=== PATIENT | male | born 1980 | race Caucasian/White ===

== ENCOUNTER 2019-07-25 02:12 | Outpatient (CLI) | payer BC, SELFPAY ==
[2019-07-25 10:58] LABS: HCT 47.7 % (40.0-50.0); HGB 15.4 g/dL (13.5-17.5); Mean Corp. HGB Concentration 32.3 g/dL (32.0-36.0); Mean Corpuscular Hemoglobin 25.8 pg (27.0-33.0); Mean Corpuscular Volume 79.8 fL (80-95); Mean Platelet Volume 9.8 fL (8.0-11.0); Platelet Count 350 x1000/uL (130-400); RBC 5.98 m/cumm (4.50-6.00); RBC Distribution Width 14.4 % (11.8-14.1); White Blood Cell Count 9.82 k/cumm (4.4-10.8)
[2019-07-25 11:17] LABS: ALT 43 U/L (16-63); AST 14 U/L (15-37); Alkaline Phosphatase 90 U/L (46-116); Anion Gap 9.6 mmol/L (3-11); BUN 20 mg/dL (7-18); Bilirubin, Total 0.4 mg/dL (0.2-1.0); CO2 26.4 mmol/L (21.0-32.0); CREATININE 0.97 mg/dL (0.70-1.30); Calcium 9.3 mg/dL (8.5-10.1); Calculated LDL 148 mg/dL; Chloride 103 mmol/L (98-107); Cholesterol 204 mg/dL (50-200); Glucose 106 mg/dL (70-100); HDL Cholesterol 44 mg/dL (40-60); Potassium 4.6 mmol/L (3.5-5.1); Sodium 139 mmol/L (136-145); Triglyceride 61 mg/dL (30-150)
== END 2019-07-25 02:32 ==
PROVIDERS: PCP Emergency Medicine; Visit Provider Family Medicine
DX: R53.83 Other fatigue (principal); G47.33 Obstructive sleep apnea (adult) (pediatric)
CPT/HCPCS: 36415; 80053; 80061; 85027

== ENCOUNTER 2021-10-01 20:37 | Outpatient (REF) | payer BC, SELFPAY ==
[2021-10-03 02:18] LABS: COVID-19 RT-PCR UVMMC Result Negative (Negative)
== END 2021-10-01 20:38 | disposition home or self-care (01) ==
LOC: LBN 20:37
PROVIDERS: PCP Emergency Medicine; Visit Provider Nurse Practitioner Family
DX: Z20.822 Contact with and (suspected) exposure to COVID-19 (principal)
CPT/HCPCS: U0003

== ENCOUNTER 2021-11-01 18:31 | Outpatient (REF) | payer BC, SELFPAY ==
[2021-11-03 01:13] LABS: COVID-19 RT-PCR UVMMC Result Negative (Negative)
== END 2021-11-01 18:32 | disposition home or self-care (01) ==
LOC: LBN 18:31
PROVIDERS: PCP Family Medicine; Visit Provider Nurse Practitioner Family
DX: Z20.822 Contact with and (suspected) exposure to COVID-19 (principal)
CPT/HCPCS: U0003

== ENCOUNTER 2021-12-12 03:39 | Outpatient (CLI) | payer BC, SELFPAY ==
[2021-12-12 10:23] LABS: HCT 47.1 % (40.0-50.0); MCH 25.5 pg (27.0-33.0); MCHC 31.8 % (32.0-36.0); MCV 80.1 fL (80-95); MPV 9.3 fL (8.0-11.0); Platelet Count 285 10^3/uL (130-400); RBC 5.88 10^6/uL (4.36-5.78); RDW 13.4 % (11.8-14.1); RDW-SD 39.1 fL; WBC 8.02 10^3/uL (4.4-10.8)
[2021-12-12 10:33] LABS: Hemoglobin A1C 5.9 % (<5.7)
[2021-12-12 11:48] LABS: ALT 55 U/L (16-63); AST 19 U/L (15-37); Alkaline Phosphatase 68 U/L (46-116); Anion Gap 10.5 mmol/L (3-11); BUN 11 mg/dL (7-18); Bilirubin, Total 0.7 mg/dL (0.2-1.0); CO2 25.5 mmol/L (21.0-32.0); CREATININE 0.9 mg/dL (0.70-1.30); Calcium 9.1 mg/dL (8.5-10.1); Calculated LDL 128 mg/dL (<100); Chloride 102 mmol/L (98-107); Cholesterol 201 mg/dL (<200); Glucose 110 mg/dL (74-106); HDL Cholesterol 37 mg/dL (40-60); Potassium 4.3 mmol/L (3.5-5.1); Sodium 138 mmol/L (136-145); TSH (W/Ref FT4) 3.21 uIU/mL (0.36-3.74); Total Protein 7.7 g/dL (6.4-8.2); Triglyceride 183 mg/dL (<150); Vitamin B12 1163 pg/mL (193-986)
== END 2021-12-12 03:40 | disposition home or self-care (01) ==
LOC: LBO 03:39
PROVIDERS: PCP Family Medicine; Visit Provider Family Medicine
DX: R20.0 Anesthesia of skin (principal); R73.9 Hyperglycemia, unspecified; Z00.00 Encounter for general adult medical examination without abnormal findings; Z13.6 Encounter for screening for cardiovascular disorders; I10 Essential (primary) hypertension
CPT/HCPCS: 36415; 80053; 80061; 85027; 82607; 83036; 84443

== ENCOUNTER 2022-09-09 10:08 | Outpatient (CLI) | payer BC, SELFPAY ==
--- NOTE | 2022-09-09 10:00 | RT.EKG_ITS ---
APPROVED REPORT Exam: Resting ECG Reason for Exam: palpatations Patient Location: O HR:79 bpm ECG Measurements Heart Rate 79 AXIS CA 149 P 27 QRSd 100 QRS 13 QT 366 T 45 QTc 420 Conclusion Sinus rhythm...normal P axis, V-rate 50- 99 ST elev, probable normal early repol pattern...ST elevation, age<55 Normal Electrocardiogram
--- NOTE | 2022-09-09 10:45 | DI.RAD_ITS ---
Exam(s) XR CHEST 2V PA LATERAL EXAM: XR CHEST 2V PA LATERAL CLINICAL HISTORY: 3 weeks of pain, palpitations, R00.2 TECHNIQUE: 2D digital imaging was performed of the chest. Two images were obtained. PA and lateral views were obtained. COMPARISON: No exams were available for comparison FINDINGS: MEDIASTINUM: Normal. HEART: Normal. PULMONARY VASCULATURE: Normal. LUNGS: Clear. PLEURAL SPACE: No pleural effusion or pneumothorax. BONE:Within normal limits for the patient's age. OTHER FINDINGS:Normal. IMPRESSION: No acute pulmonary findings. DATA REPOSITORY: RADIATION DOSE DELIVERED:
--- NOTE | 2022-09-09 10:45 | DI.RAD_ITS ---
Exam(s) XR SHOULDER LT COMPLETE 2+V EXAM: XR SHOULDER LT COMPLETE 2+V CLINICAL HISTORY: 3 weeks of pain, lt shoulder, M25.512. TECHNIQUE: 2D digital imaging was performed of the left shoulder. Six images were obtained. AP, Gr ashey, Y-view and axillary views were obtained. COMPARISON: No exams were available for comparison FINDINGS: BONES: No acute fracture is present. No bony destructive lesion is seen. JOINTS: No dislocation present. Mild degenerative changes are seen at the acromioclavicular joint. T he glenohumeral joint is well maintained. SOFT TISSUE: There is a nonspecific 8 mm density adjacent to the proximal diaphysis of the left humer us. The underlying bone is unremarkable. IMPRESSION: No acute abnormality. If there is concern for internal derangement, an MRI should be considered for further evaluation. DATA REPOSITORY: RADIATION DOSE DELIVERED:
== END 2022-09-09 10:09 | disposition home or self-care (01) ==
LOC: DI.CM 10:31
PROVIDERS: PCP Nurse Practitioner Family; Visit Provider Nurse Practitioner Family
DX: R00.2 Palpitations (principal); M25.512 Pain in left shoulder
CPT/HCPCS: 93010; 71046; 73030

== ENCOUNTER 2024-05-16 11:06 | Day surgery (SDC) | payer BC, SELFPAY ==
--- NOTE | 2024-05-15 20:21 | W.PM.DSUDISC ---
Date of service: 05/16/24 Time of Service: 13:12 Discharge Plan Disposition Patient Disposition: Home Condition: Good Discharge Details Reason For Visit: screening colonoscopy Attending Provider: Uziel Stallings Primary Care Provider: Contreras Hardy Home Meds and New Rx's Prescriptions: Continued multivitamin Tablet 1 tab PO DAILY loratadine [Claritin] 10 mg tablet 10 mg PO DAILY Qty: 90 3RF Discontinued bisacodyl [Dulcolax (bisacodyl)] 5 mg tablet,delayed release (DR/EC) 5 mg PO ONCE Qty: 4 0RF Rx Instructions: Take per colonoscopy instructions provided by ordering providers office polyethylene glycol 3350 17 gram/dose powder 17 g PO ONCE Qty: 238 0RF Rx Instructions: Take per colonoscopy instructions provided by ordering providers office Discharge Instructions Instructions: Diverticulosis Additional Instructions: Renaldo, we are able to complete your colonoscopy today without any difficulty. Your prep was excellent negative everything just fine. You do have a benign fibroepithelial polyp in the bottom part of your rectum. These are not true polyps, rather more like skin tags, or perhaps old internal hemorrhoids. They pose no significant risk to your health or wellbeing. He also have some diverticulosis. Diverticula are little weak spots in the wall of the colon. They typically accumulate as we get older. They can get infected or inflamed. When that happens, we caught diverticulitis, and it is typically experienced as sharp pains usually on the left lower part of the abdomen. Patients are usually quite ill during these times, with fevers, and general malaise. Often times it is treated with antibiotics. Hopefully, years will never bother you. I have attached a little bit of information here about typical approaches to diverticular management. Otherwise, your colonoscopy is negative. There were no polyps or anything concerning. Therefore, you will need another colonoscopy in 10 years. 1. If tolerated, consume a soft, low fiber diet for 1-2 days. 2[address] Do not drive, drink alcohol, operate machinery, make critical decisions, or do activities that require coordination or balance for 24 hours. 3. Because air was put into your colon during the procedure, expelling air from your rectum (passing gas or farting) is normal. 4. You may not have a bowel movement for 1-3 days because of the colonoscopy prep. This is normal. 5. Go directly to the emergency room if you notice any of the following: Develop chills (warm to touch), or if you have a thermometer and your temperature is above 101 Difficulty breathing or difficultly swallowing Persistent vomiting Severe abdominal pain, other than gas cramps Severe chest pain Black, tarry stools Any bleeding ? exceeding one tablespoon 6. Call your physician if the site where your intravenous was started becomes red, swollen, painful, and warm to touch. 7. Your physician has reviewed your pre-procedure medications. Please continue to take those medications as previously ordered. You will be given specific information/education regarding any changes to your medications before leaving. Activity:: Activity as Tolerated Diet:: As Tolerated Discharge Orders Discharge Orders: Discharge Order (Routine); Ordered 05/15/24 Ordered By: Uziel Stallings DS: Diagnosis Discharge Diagnosis (1) Encounter for screening colonoscopy: Status: Acute Asessment and Plan: Normal screening colonoscopy; recommend 10-year follow-up
--- NOTE | 2024-05-15 20:24 | W.COLOREPORT ---
Date of service: 05/16/24 Time of Service: 13:14 Colonoscopy Report Date of procedure: 05/16/24 Pre-op diagnosis general: screening colonsocopy Post-op diagnosis procedure note: other (Benign fibroepithelial polyp, diverticulosis) Procedure: colonoscopy Surgeon: Uziel Stallings Anesthesia Type: General:No Airway Estimated blood loss (mL): 0 Pathology: none sent Complications: None Disposition: same day Indications: Renaldo is a 43 year old man who needs a screening colonoscopy Prep: Miralax/Dulcolax Procedure Start Time: 12:56 Procedure End Time: 13:06 Retraction Time: 6 Findings: Benign fibroepithelial polyp, sigmoid diverticulosis Procedure Description: After the induction of anesthesia, and with the patient in left lateral decubitus position, I began by performing an external anorectal exam.? Perineum and skin were normal, as was the anal verge.? There was no evidence of external hemorrhoids.? Next, I performed a digital rectal exam.? There is a small polyp.? Next, I advanced a colonoscope into the rectal vault.? I performed retroflexion.? The previously mentioned polyp appeared to be a benign fibroepithelial polyp. Narrowband imaging was used to assist with analysis here.? Using insufflation, I then advanced the colonoscope beyond the rectal folds and into the sigmoid colon before advancing towards the cecum.? The scope was noted to be in the cecum by identification of the ileocecal valve and appendiceal orifice.? I then began withdrawing the colonoscope using repeated irrigation as necessary for full evaluation of the colonic mucosa. ?There is some sigmoid diverticulosis. Once the scope was withdrawn to the level of the rectum, great care was taken to examine portions of the rectal folds.? Finally, the scope was withdrawn and the patient was brought to the same-day surgery recovery unit as the anesthetic wore off. ?The findings and instructions were shared with the patient prior to discharge. [place] Bowel Prep [place] Bowel Prep Right Colon: 3 Left Colon: 3 Transverse Colon: 3 Total Score: 9
[2024-05-16 11:38] VITALS: BP 112/81; PULSE 60; RESP 16; TEMP 36.7; O2SAT 97
[2024-05-16] MEDS: Lactated Ringers 1,000 ML 80 ML IV (12:00)
--- NOTE | 2024-05-16 12:39 | W.ANESPRE ---
General Info Date of Service Date Performed: 05/16/24 Height: 5 ft 6 in Weight: 105.3 kg Body Mass Index (BMI): 37.4 Surgical Procedure: Operation Date: 05/16/24 12:50 Proposed Procedure Side Surgeon p Colonoscopy Uziel Stallings MD Actual Procedure Side Surgeon p Colonoscopy Not Applicable Uziel Satllings MD Meds Allergies and Home Medications Allergies Allergy/AdvReac Type Severity Reaction Status Date / Time No Known Allergies Allergy Verified 05/16/24 11:40 Home Medication ?Medication ?Instructions ?Recorded loratadine 10 mg tablet (Claritin) 10 mg PO DAILY #90 tabs 01/01/24 multivitamin 1 tab PO DAILY 01/01/24 Current Visit Medications: Current Medications Generic Name Dose Route Start Last Admin Trade Name Freq PRN Reason Stop Dose Admin Ringer's Solution 1,000 mls @ 80 mls/hr 05/16/24 06:00 IV 06/12/24 23:59 INFUSION PAUL IV Miscellaneous Supplies 1 each 05/16/24 06:00 Iv Access IV 06/12/24 23:59 DIRECTED PAUL Ondansetron HCl 4 mg 05/15/24 20:25 Ondansetron 4 Mg/2 Ml Vial IVP 06/14/24 20:24 Q4H PRN PRN Nausea / Vomiting Sodium Chloride 0 ml 05/16/24 06:00 Normal Saline Flush 10 Ml Syr IV 06/12/24 23:59 PRN PRN Sodium Chloride 0 ml 05/16/24 06:00 Normal Saline 10 Ml Vial IJ 06/12/24 23:59 DIRECTED PRN Sterile Water 0 ml 05/16/24 06:00 Water,Injection,Sterile 10 Ml Vial IJ 06/12/24 23:59 DIRECTED PRN PFSH Active Problems Active Problems: Problem Status Onset Code Encounter for screening colonoscopy Acute Z12.11 Environmental allergies Acute Z91.09 Mixed hyperlipidemia Acute E78.2 Left shoulder pain Acute M25.512 Hyperglycemia Acute R73.9 Low back pain without sciatica Acute 06/15/15 M54.5 Overweight Acute 06/15/15 E66.3 Sleep apnea Acute 06/15/15 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 Acute 08/28/15 H91.90 Tobacco Smoking/Tobacco Use Status: Never Passive smoking exposure: Yes Second hand exposure: Yes Alcohol Alcohol Intake: current Alcohol intake frequency: a few times a week Alcohol type: beer, wine and hard liquor Substance Use Substance use: Rarely Substance use type: marijuana Vital Signs and Lab Results Vital Signs Most Recent Vital Signs in EMR: Most Recent Vital Signs Temp Pulse Resp BP Pulse Ox 36.7 C 60 16 112/81 97 05/16/24 11:38 05/16/24 11:38 05/16/24 11:38 05/16/24 11:38 05/16/24 11:38 Lab Results Blood Type / Crossmatch: No Data to Display Complete Blood Count: No Data to Display Complete Metabolic Panel: No Data to Display Liver Function Panel: No Data to Display Coagulation Panel: No Data to Display Cardiac Panel: No Data to Display Arterial Blood Gas: No Data to Display Venous Blood Gas: No Data to Display Pancreas Panel: No Data to Display Thyroid Panel: No Data to Display Infectious Disease: No Data to Display Blood Cultures: No Data to Display Toxicology Panel: No Data to Display Anesthesia Assessment and Plan Anesthesia History Personal History: No History of General Anesthesia Family History: No Family History of Anesthesia Complications Exercise Tolerance Exercise Tolerance: Metabolic Equivalents>4 Pertinent Negatives Pertinent Negatives: No Symptoms of GERD Cardiac & Pulmonary Exam Cardiac Exam: Normal S1/S2 Heart Sounds Pulmonary Exam: Clear Bilateral Breath Sounds Implantable Cardiac Device Does patient have a Pacemaker or an ICD?: No Airway Exam Known Difficult Airway: No Mallampati Class: 2 Mouth Opening: Normal (> 3cm) Thyromental Distance: Greater than 3 cm Neck Range of Motion: Full ROM Neck Circumference: Normal Teeth Condition: Normal Dentition ASA Classification ASA Score: ASA 2 Emergency Case?: No NPO Status NPO Status: NPO Clears >2 hours, Solids >8 hours Anesthesia Plan Resuscitation Status: Full Code Anesthesia Technique: General Anesthesia Airway Planned: Natural Airway Monitors Used: Standard Monitors
[2024-05-16 12:41] VITALS: BMI 37.4
[2024-05-16 13:12] VITALS: BP 118/86; PULSE 65; RESP 18; TEMP 36.6; O2SAT 99
--- NOTE | 2024-05-16 13:20 | W.ANESPOSTOP ---
Postoperative Evaluation Date, Time and Location Date Performed: 05/16/24 Time Performed: 13:20 Patient Location: Day Surgery Unit Vital Signs Most Recent Imported Vital Signs: Most Recent Vital Signs Temp Pulse Resp BP Pulse Ox 36.7 C 60 16 112/81 97 05/16/24 11:38 05/16/24 11:38 05/16/24 11:38 05/16/24 11:38 05/16/24 11:38 Pain Score Most Recent Pain Score: Most Recent Pain Score Pain Level 0 05/16/24 11:38 Assessment Mental Status: Awake (Alert & Oriented to Patient Baseline) Airway and Respiratory Function: Patent airway with normal (patient baseline) respiratory exam Cardiovascular Function: Hemodynamically Stable Hydration Status: Adequately Hydrated Nausea & Vomiting: No Nausea or Vomiting Pain: Pt. Denies Any Pain Peripheral Nerve Block: Patient did not receive a nerve block
[2024-05-16 13:42] VITALS: BP 124/88; PULSE 56; RESP 18; TEMP 36.7; O2SAT 98
== END 2024-05-16 13:44 | disposition home or self-care (01) ==
LOC: SUR 11:06
PROVIDERS: PCP Nurse Practitioner Family; Visit Provider Surgery
PROC: 0DJD8ZZ Inspection of Lower Intestinal Tract, Via Natural or Artificial Opening Endoscopic (ICD-10-PCS; CPT 45378; principal; 2024-05-16 12:45)
DX: Z12.11 Encounter for screening for malignant neoplasm of colon (principal); K57.30 Diverticulosis of large intestine without perforation or abscess without bleeding
CPT/HCPCS: 45378; J2704

== ENCOUNTER 2025-01-02 11:30 | Outpatient (CLI) | payer BC, SELFPAY ==
[2025-01-02 12:38] LABS: Calculated LDL 115 mg/dL (<100); Cholesterol 189 mg/dL (<200); HDL Cholesterol 49 mg/dL (>or=40); Triglyceride 127 mg/dL (<150)
[2025-01-02 13:43] LABS: Hemoglobin A1C 5.7 % (<5.7)
== END 2025-01-02 11:31 | disposition home or self-care (01) ==
LOC: LOS 11:30
PROVIDERS: PCP Nurse Practitioner Family; Referring Provider Nurse Practitioner Family; Visit Provider Nurse Practitioner Family
DX: Z13.1 Encounter for screening for diabetes mellitus (principal); Z13.220 Encounter for screening for lipoid disorders; Z23 Encounter for immunization; E78.2 Mixed hyperlipidemia; R73.9 Hyperglycemia, unspecified; G47.33 Obstructive sleep apnea (adult) (pediatric)
CPT/HCPCS: 36415; 80061; 83036